=== PATIENT | female | born 1990 | race Two or more races ===

== ENCOUNTER 2017-01-19 23:36 | Emergency (ER) | payer MEDICAID ==
[~2017-01-19] VITALS: Ht 170.2 cm; Wt 68.0 kg
[2017-01-19 23:38] VITALS: BP 83/49
[2017-01-19] MEDS ORDERED: Morphine Sulfate 4mg/ml Inj IVP ONE (23:45)
[2017-01-20 01:47] LABS: BASOPHILS % (AUTO) 0.5 % (0.0-2.0); LYMPHOCYTES % (AUTO) 24.4 % (20.0-45.0); MEAN CORPUSCULAR HEMOGLOBIN 32.1 PG (27.0-31.0); MEAN CORPUSCULAR HGB CONC 34.8 G/DL (32.0-36.0); MEAN CORPUSCULAR VOLUME 92 FL (80-99); MONOCYTES % (AUTO) 6.2 % (1.0-10.0); PLATELET COUNT 201 K/UL (150-450); RED BLOOD COUNT 3.85 M/UL (4.20-5.40); RED CELL DISTRIBUTION WIDTH 11.9 % (11.6-14.8); WHITE BLOOD COUNT 13.2 K/UL (4.8-10.8)
[2017-01-20 01:57] LABS: ALANINE AMINOTRANSFERASE 13 U/L (3-33); ANION GAP 16 (5-15); ASPARTATE AMINO TRANSFERASE 23 U/L (5-40); CARBON DIOXIDE 21 mEQ/L (20-30); CHLORIDE 102 mEQ/L (98-107); CREATININE 0.4 mg/dL (0.5-0.9); GLOMERULAR FILTRATION RATE > 60 mL/min (>60); HEMOLYSIS 43; LIPASE 41 U/L (< 60); POTASSIUM 3.4 mEQ/L (3.4-4.9); SODIUM 139 mEQ/L (135-145); TOTAL PROTEIN 6.7 g/dL (6.6-8.7)
[2017-01-20 02:16] LABS: APPEARANCE,URINE CLEAR; KETONES,URINE 3+ (NEGATIVE); LEUKOCYTE ESTERASE ,URINE NEGATIVE (NEGATIVE); NITRITE,URINE NEGATIVE (NEGATIVE); PH,URINE 7 (4.5-8.0); PROTEIN,URINE NEGATIVE (NEGATIVE); UROBILINOGEN,URINE NORMAL MG/DL (0.0-1.0)
[2017-01-20] MEDS ORDERED: TYLENOL EXTRA500 MG ORAL (02:36)
[2017-01-20 02:47] VITALS: BP 128/78
--- NOTE | 2017-01-20 04:33 | Emergency Room Report ---
History of Present Illness General Chief Complaint: Syncope Source: Patient, EMS Present Illness HPI 26-year-old female presents ED complaining of abdominal pain which started tonight. Per EMS patient is approximately 5 months . Patient denies any vaginal bleeding or discharge. Denies dysuria or hematuria. Pain is a 10 out of 10, sharp, lower abdomen. Denies fevers chills. The or vomiting. No other aggravating or relieving factors. Denies any other associated symptoms Allergies: Coded Allergies: No Known Allergies (Unverified , 01/19/17) Patient History Past Medical History: none Past Surgical History: none Pertinent Family History: none Social History: Denies: alcohol use, drug use, smoking Last Menstrual Period: 5 MONTHS Now: Yes Immunizations: UTD Reviewed Nursing Documentation: PMH: Agreed, PSxH: Agreed Nursing Documentation-PMH Past Medical History: No Stated History Review of Systems All Other Systems: negative except mentioned in HPI Physical Exam Vital Signs Date Time Temp Pulse Resp B/P Pulse Ox O2 Delivery O2 Flow Rate FiO2 01/19/17 23:28 98.4 73 18 83/49 98 Room Air Sp02 EP Interpretation: reviewed, normal General Appearance: alert, GCS 15, non-toxic, mild distress Head: normocephalic, atraumatic Eyes: bilateral eye PERRL, bilateral eye normal inspection ENT: hearing grossly normal, normal pharynx, no angioedema, normal voice Neck: full range of motion, supple/symm/no masses Respiratory: chest non-tender, lungs clear, normal breath sounds, speaking full sentences Cardiovascular #1: regular rate, rhythm, no edema Cardiovascular #2: 2+ carotid (R), 2+ carotid (L), 2+ radial (R), 2+ radial (L) , 2+ dorsalis pedis (R), 2+ dorsalis pedis (L) Gastrointestinal: normal bowel sounds, soft, non-distended, no guarding, no rebound, tenderness Rectal: deferred Genitourinary: normal inspection, no CVA tenderness Musculoskeletal: back normal, gait/station normal, normal range of motion, non- tender Neurologic: alert, oriented x3, responsive, motor strength/tone normal, sensory intact, speech normal Psychiatric: judgement/insight normal, memory normal, mood/affect normal, no suicidal/homicidal ideation Reflexes: 3+ bicep (R), 3+ bicep (L), 3+ tricep (R), 3+ tricep (L), 3+ knee (R) , 3+ knee (L) Skin: normal color, no rash, warm/dry, well hydrated Lymphatic: no adenopathy Medical Decision Making Diagnostic Impression: Primary Impression: Threatened ER Course Hospital Course 26-year-old female presents to ED complaining of lower abdominal pain. Approximately 5 months Differential diagnoses include: gastrits, gastroenterits, ectopic , ovarian torsion/cyst, UTI Clinical course Patient placed on stretcher in ED. After initial history and physical I ordered labs, IV fluids and pain meds and pelvic ultrasound. Labs-no leukocytosis, electrolytes okay, beta hCG greater than 5,000, UA unremarkable Pelvic ultrasound-IUP detected with heart rate Patient initially hypotensive, improved with IV fluids Upon reassessment patient states she feels better wishes to go home. Given the patient's approximately 20 weeks I offered patient option for admission with transfer to hospital with labor and delivery for observation. Patient states she prefers to be discharged and will followup with her POLITICAL SCIENTIST tomorrow. Diagnosis - threatened Stable and discharged to home with Rx Tylenol. Followup with PMD/POLITICAL SCIENTIST. Return to ED if symptoms recur or worsen Labs Test 01/20/17 01:20 01/20/17 02:00 White Blood Count 13.2 K/UL (4.8-10.8) Red Blood Count 3.85 M/UL (4.20-5.40) Hemoglobin 12.4 G/DL (12.0-16.0) Hematocrit 35.5 % (37.0-47.0) Mean Corpuscular Volume 92 FL (80-99) Mean Corpuscular Hemoglobin 32.1 PG (27.0-31.0) Mean Corpuscular Hemoglobin Concent 34.8 G/DL (32.0-36.0) Red Cell Distribution Width 11.9 % (11.6-14.8) Platelet Count 201 K/UL (150-450) Mean Platelet Volume 7.0 FL (6.5-10.1) Neutrophils (%) (Auto) 68.0 % (45.0-75.0) Lymphocytes (%) (Auto) 24.4 % (20.0-45.0) Monocytes (%) (Auto) 6.2 % (1.0-10.0) Eosinophils (%) (Auto) 1.0 % (0.0-3.0) Basophils (%) (Auto) 0.5 % (0.0-2.0) Sodium Level 139 mEQ/L (135-145) Potassium Level 3.4 mEQ/L (3.4-4.9) Chloride Level 102 mEQ/L (98-107) Carbon Dioxide Level 21 mEQ/L (20-30) Anion Gap 16 (5-15) Blood Urea Nitrogen 5 mg/dL (7-23) Creatinine 0.4 mg/dL (0.5-0.9) Estimat Glomerular Filtration Rate > 60 mL/min (>60) Glucose Level 79 mg/dL (74-106) Calcium Level 9.0 mg/dL (8.6-10.2) Total Bilirubin 0.3 mg/dL (0.0-1.2) Aspartate Amino Transf (AST/SGOT) 23 U/L (5-40) Alanine Aminotransferase (ALT/SGPT) 13 U/L (3-33) Alkaline Phosphatase 51 U/L (35-104) Total Protein 6.7 g/dL (6.6-8.7) Albumin 3.5 g/dL (3.5-5.2) Globulin 3.2 g/dL Albumin/Globulin Ratio 1.0 (1.0-2.7) Lipase 41 U/L (< 60) Human Chorionic Gonadotropin, Quant 5973 mIU/mL Urine Color Yellow Urine Appearance Clear Urine pH 7 (4.5-8.0) Urine Specific [place] 1.005 (1.005-1.035) Urine Protein Negative (NEGATIVE) Urine Glucose (UA) Negative (NEGATIVE) Urine Ketones 3+ (NEGATIVE) Urine Occult Blood Negative (NEGATIVE) Urine Nitrite Negative (NEGATIVE) Urine Bilirubin Negative (NEGATIVE) Urine Urobilinogen Normal MG/DL (0.0-1.0) Urine Leukocyte Esterase Negative (NEGATIVE) Urine HCG, Qualitative Positive CT/MRI/US Diagnostic Results CT/MRI/US Diagnostic Results : Imaging Test Ordered: OB US Impression Intrauterine . heart rate noted. Last Vital Signs Date Time Temp Pulse Resp B/P Pulse Ox O2 Delivery O2 Flow Rate FiO2 01/19/17 23:28 98.4 73 18 83/49 98 Room Air Status: improved Disposition: HOME, SELF-CARE Condition: Stable Scripts Acetaminophen* (TYLENOL EXTRA STRENGTH*) 500 Mg Tablet 500 MG ORAL Q8H Y for Prn Headache/Temp > 101, #30 TAB 0 Refills Prov: JG CHRISTOPHER M.D. 01/20/17 Patient Instructions: Threatened Miscarriage JG CHRISTOPHER M.D. Jan 20, 2017 04:33
--- NOTE | 2017-01-21 13:32 | Diagnostic Imaging Report ---
Indication: ABD PAIN abdominal pain, patient, lower abdominal pain for one week Technique: Transabdominal and transvaginal images Comparison: None Findings: There is a single live intrauterine . This demonstrates positive heart activity, heart rate is 189 beats for minute. Posterior fundal placenta, clears the internal cervical os. Posterior normal amniotic fluid volume. Estimated gestational age by average of ultrasound measurements is 20 weeks zero days. Estimated gestational age by dates is not available. Estimated date of delivery is 06/09/17 Given emergent nature of the exam, evaluation of the anatomy is limited. Normal spine, stomach, four-chamber heart, extremities, insertion three-vessel cord are noted. No gross anomalies are evident. Impression: Single live intrauterine , 20 weeks estimated gestational age by average of ultrasound measurements. Only limited assessment of anatomy, no gross abnormality demonstrated This agrees with the preliminary interpretation provided overnight by [facility]eradiology service.
== END 2017-01-20 02:47 | disposition home or self-care (01) ==
LOC: EDBD 23:36 → EMR 23:55
DX: O20.0 Threatened abortion (principal); Z3A.20 20 weeks gestation of pregnancy; I95.9 Hypotension, unspecified
CPT/HCPCS: 36415; 76805; 80053; 81003; 81025; 83690; 84702; 85025; 96374; 96375; 99284; J2270